=== PATIENT | female | born 1940 | race American Indian/Alaskan Native ===

== ENCOUNTER 2016-11-16 06:50 | Outpatient (CLI) | payer MEDICARE ==
--- NOTE | 2016-11-16 09:02 | Mammography Report ---
BILATERAL MAMMOGRAM: FINDINGS: The breasts are almost entirely fat (<25% glandular). No mass, distortion, suspicious calcification, or skin change is seen. No significant change identified when compared to prior exam in October 2015. CAD was utilized. IMPRESSION: Negative mammogram. There is no mammographic evidence of malignancy. RECOMMENDATION: Follow-up per ACS guidelines. BI-RADS CATEGORY: 1 = Negative ACR BI-RADS MAMMOGRAPHIC CODES: 0 = Needs additional imaging evaluation; 1 = Negative; 2 = Benign; 3 = Probably benign; 4 = Suspicious; 5 = Malignant; 6 = Known biopsy-proven malignancy COMMENT: 1. Dense breast tissue, i.e., adenosis, fibrocystic changes, etc., may obscure an underlying neoplasm. 2. Approximately 10% of cancers are not detected with mammography. 3. A negative mammography report should not delay biopsy if a clinically suspicious mass is present. COMMENT: Patient follow-up letters are generated in [employer].
== END 2016-11-16 06:51 | disposition home or self-care (01) ==
LOC: MAMMO 06:50
PROVIDERS: ATTEND Physician Assistant Medical
DX: Z12.31 Encounter for screening mammogram for malignant neoplasm of breast (principal)
CPT/HCPCS: 77067; G0202

== ENCOUNTER 2017-11-19 07:25 | Outpatient (CLI) | payer MEDICARE ==
--- NOTE | 2017-11-19 08:03 | Mammography Report ---
Bilateral mammogram: Compared to 11/16/16. CAD study utilized. Findings: Predominance adipose tissue bilaterally. Benign calcifications. Benign axillary nodes. No distinct mass. No significant interval change. Impression: Benign findings. Annual followup recommended. BI-RADS CATEGORY: 2 = Benign ACR BI-RADS MAMMOGRAPHIC CODES: 0 = Needs additional imaging evaluation; 1 = Negative; 2 = Benign; 3 = Probably benign; 4 = Suspicious; 5 = Malignant; 6 = Known biopsy-proven malignancy COMMENT: 1. Dense breast tissue, i.e., adenosis, fibrocystic changes, etc., may obscure an underlying neoplasm. 2. Approximately 10% of cancers are not detected with mammography. 3. A negative mammography report should not delay biopsy if a clinically suspicious mass is present. COMMENT: Patient follow-up letters are generated in [employer].
== END 2017-11-19 07:26 | disposition home or self-care (01) ==
LOC: MAMMO 07:25
PROVIDERS: ATTEND Physician Assistant Medical
DX: Z12.31 Encounter for screening mammogram for malignant neoplasm of breast (principal); Z88.1 Allergy status to other antibiotic agents
CPT/HCPCS: 77067

== ENCOUNTER 2018-02-14 04:09 | Emergency (ER) | payer MEDICARE ==
[2018-02-14 07:37] LABS: Hematocrit 41.5 % (30.3-42.9); Hemoglobin 14.5 gm/dl (10.1-14.3); Mean Corpuscular HGB Conc 35 % (30-34); Mean Corpuscular Hemoglobin 33 pg (28-32); Mean Corpuscular Volume 93 fl (79-97); Platelet Count 181 K/mm3 (140-440); Red Blood Count 4.45 M/mm3 (3.65-5.03); Red Cell Distribution Width 13.1 % (13.2-15.2)
[2018-02-14 07:48] LABS: BUN/Creatinine Ratio 24; Blood Urea Nitrogen 12 mg/dL (7-17); Calcium 8.9 mg/dL (8.4-10.2); Hemolysis Index 109
[2018-02-14 08:06] VITALS: BP 145/54
--- NOTE | 2018-02-14 08:11 | Emergency Department Report ---
ED General Adult HPI - General Chief complaint: High BP Stated complaint: HIGH BP/HEADACHE Time Seen by Provider: 02/14/18 08:01 Source: patient Mode of arrival: Ambulatory Limitations: No Limitations - History of Present Illness Initial comments: Patient complains of elevated blood pressure after eating barbecue sauce which itching last night. She says she took Blood pressure medicine this morning before coming to the emergency room. She denies any medical complaints currently. She denies headache, chest, shortness of breath, abdominal pain, nausea vomiting diarrhea. -: Sudden Consistency: now resolved Improves with: medication Worsens with: none Associated Symptoms: denies other symptoms Treatments Prior to Arrival: other (Losartan and metoprolol.) - Related Data Home Medications Medication Instructions Recorded Confirmed Last Taken Losartan Potassium 25 mg PO DAILY 02/14/18 02/14/18 Unknown Metoprolol Tartrate 25 mg PO BID 02/14/18 02/14/18 Unknown Allergies Allergy/AdvReac Type Severity Reaction Status Date / Time Sulfa (Sulfonamide Allergy Unknown Unverified 11/12/14 08:01 Antibiotics) ED Review of Systems ROS: Stated complaint: HIGH BP/HEADACHE Other details as noted in HPI Comment: All other systems reviewed and negative Constitutional: denies: chills, fever Eyes: denies: eye pain, eye discharge, vision change ENT: denies: ear pain, throat pain Respiratory: denies: cough, shortness of breath, wheezing Cardiovascular: denies: chest pain, palpitations Endocrine: no symptoms reported Gastrointestinal: denies: abdominal pain, nausea, diarrhea Genitourinary: denies: urgency, dysuria, discharge Musculoskeletal: denies: back pain, joint swelling, arthralgia Skin: denies: rash, lesions Neurological: denies: headache, weakness, paresthesias Psychiatric: denies: anxiety, depression Hematological/Lymphatic: denies: easy bleeding, easy bruising ED Past Medical Hx - Past Medical History Hx Hypertension: Yes - Surgical History Additional Surgical History: Hysterectomy. X1 - Social History Smoking Status: Never Smoker Substance Use Type: None - Medications Home Medications: Home Medications Medication Instructions Recorded Confirmed Last Taken Type Losartan Potassium 25 mg PO DAILY 02/14/18 02/14/18 Unknown History Metoprolol Tartrate 25 mg PO BID 02/14/18 02/14/18 Unknown History ED Physical Exam - General Limitations: No Limitations General appearance: alert, in no apparent distress - Head Head exam: Present: atraumatic, normocephalic - Eye Eye exam: Present: normal appearance, PERRL, EOMI - ENT ENT exam: Present: mucous membranes moist - Neck Neck exam: Present: normal inspection - Respiratory Respiratory exam: Present: normal lung sounds bilaterally. Absent: respiratory distress - Cardiovascular Cardiovascular Exam: Present: regular rate, normal rhythm. Absent: systolic murmur, diastolic murmur, rubs, gallop - GI/Abdominal GI/Abdominal exam: Present: soft, normal bowel sounds - Extremities Exam Extremities exam: Present: normal inspection - Back Exam Back exam: Present: normal inspection - Neurological Exam Neurological exam: Present: alert, oriented X3 - Psychiatric Psychiatric exam: Present: normal affect, normal mood - Skin Skin exam: Present: warm, dry, intact, normal color. Absent: rash ED Course Vital Signs 02/14/18 02/14/18 02/14/18 05:04 06:51 08:03 Temperature 98.6 F 98.6 F Pulse Rate 57 L 56 L 79 Respiratory 18 16 13 Rate Blood Pressure 158/68 153/59 O2 Sat by Pulse 95 97 Oximetry 02/14/18 02/14/18 08:04 08:05 Temperature Pulse Rate 61 57 L Respiratory 15 10 L Rate Blood Pressure 145/54 O2 Sat by Pulse 98 Oximetry ED Medical Decision Making - Lab Data Result diagrams: 02/14/18 08:11 02/14/18 08:11 Lab Results 02/14/18 02/14/18 Range/Units 07:21 07:21 WBC 5.1 (4.5-11.0) K/mm3 RBC 4.45 (3.65-5.03) M/mm3 Hgb 14.5 H (10.1-14.3) gm/dl Hct 41.5 (30.3-42.9) % MCV 93 (79-97) fl MCH 33 H (28-32) pg MCHC 35 H (30-34) % RDW 13.1 L (13.2-15.2) % Plt Count 181 (140-440) K/mm3 Sodium 137 (137-145) mmol/L Potassium 5.2 H (3.6-5.0) mmol/L Chloride 102.6 (98-107) mmol/L Carbon Dioxide 25 (22-30) mmol/L Anion Gap 15 mmol/L BUN 12 (7-17) mg/dL Creatinine 0.5 L (0.7-1.2) mg/dL Estimated GFR > 60 ml/min BUN/Creatinine Ratio 24 % Glucose 103 H (65-100) mg/dL Calcium 8.9 (8.4-10.2) mg/dL - Medical Decision Making Hypertension. Patient blood pressure has normalized while she was lifting in the emergency room. We'll discharge her home to follow up with her primary doctor. Patient says she has a blood pressure medication at home and she does not need any refills. Critical care attestation.: If time is entered above; I have spent that time in minutes in the direct care of this critically ill patient, excluding procedure time. ED Disposition Clinical Impression: Hypertension Qualifiers: Hypertension type: essential hypertension Qualified Code(s): I10 - Essential ( primary) hypertension Disposition: DC- TO HOME OR SELFCARE Is pt being admited?: No Does the pt Need Aspirin: No Condition: Stable Instructions: Hypertension (ED) Additional Instructions: Please follow up with her primary doctor Dr Al or Dr. Zhu within the next 24 hours. Return to the emergency room if her condition worsens. Referrals: REYES ZHU JR, MD [Staff Physician] - 3-5 Days CRUZ AL MD [Staff Physician] - 3-5 Days Time of Disposition: 08:45
[2018-02-14 08:25] LABS: Basophils % (Auto) 0.5 % (0.0-1.8); Eosinophils # (Auto) 0.1 K/mm3 (0.0-0.4); Eosinophils % (Auto) 1.2 % (0.0-4.3); Hematocrit 42.1 % (30.3-42.9); Hemoglobin 14.4 gm/dl (10.1-14.3); Lymphocytes # (Auto) 1.7 K/mm3 (1.2-5.4); Lymphocytes % (Auto) 37.1 % (13.4-35.0); Mean Corpuscular HGB Conc 34 % (30-34); Mean Corpuscular Hemoglobin 32 pg (28-32); Mean Corpuscular Volume 94 fl (79-97); Monocytes # (Auto) 0.3 K/mm3 (0.0-0.8); Monocytes % (Auto) 7.5 % (0.0-7.3); Platelet Count 175 K/mm3 (140-440)
[2018-02-14 08:40] LABS: Alanine Aminotransferase 20 units/L (7-56); BUN/Creatinine Ratio 24; Blood Urea Nitrogen 12 mg/dL (7-17); Calcium 8.9 mg/dL (8.4-10.2); Hemolysis Index 22
== END 2018-02-14 09:02 | disposition home or self-care (01) ==
LOC: ED 04:09
DX: I10 Essential (primary) hypertension (principal); Z88.2 Allergy status to sulfonamides; Z90.710 Acquired absence of both cervix and uterus
CPT/HCPCS: 36415; 80048; 80053; 85025; 85027; 99283

== ENCOUNTER 2018-09-26 22:46 | Emergency (ER) | payer MEDICARE ==
[2018-09-27 01:15] LABS: Basophils % (Auto) 0.5 % (0.0-1.8); Eosinophils # (Auto) 0.1 K/mm3 (0.0-0.4); Eosinophils % (Auto) 1.4 % (0.0-4.3); Hematocrit 39.4 % (30.3-42.9); Hemoglobin 13.5 gm/dl (10.1-14.3); Lymphocytes # (Auto) 1.8 K/mm3 (1.2-5.4); Lymphocytes % (Auto) 33.8 % (13.4-35.0); Mean Corpuscular HGB Conc 34 % (30-34); Mean Corpuscular Volume 94 fl (79-97); Monocytes # (Auto) 0.5 K/mm3 (0.0-0.8); Monocytes % (Auto) 9.6 % (0.0-7.3); Platelet Count 156 K/mm3 (140-440); Red Blood Count 4.18 M/mm3 (3.65-5.03); Red Cell Distribution Width 12.7 % (13.2-15.2)
[2018-09-27 01:33] VITALS: BP 140/76
[2018-09-27 01:37] LABS: BUN/Creatinine Ratio 19; Blood Urea Nitrogen 13 mg/dL (7-17); Calcium 9.6 mg/dL (8.4-10.2); Hemolysis Index 13
--- NOTE | 2018-09-27 02:38 | Emergency Department Report ---
ED General Adult HPI - General Chief complaint: High BP Stated complaint: BLOOD PRESSURE HIGH Time Seen by Provider: 09/27/18 02:17 Source: patient, old records reviewed Mode of arrival: Ambulatory Limitations: No Limitations - History of Present Illness Initial comments: 78-year-old female with past medical history of hypertension and diabetes presents to the hospital complaining of elevated blood pressure and headache. Patient checks her blood pressure frequency but does not know her typical value. He states it fluctuates between being too low in the morning and then getting higher at night. She is prescribed metoprolol 25 mg twice a day, hyd rochlorothiazide 12.5 mg daily, lisinopril 5 mg. Because her blood pressure was too low in the morning her doctor told her to take only half tablet i.e. 2.5 mg lisinopril daily. Patient typically takes a blood pressure medication at night only if her pressure is high. She took both the lisinopril 2.5 mg and hydrochlorothiazide 25 mg about 7:30 PM. She was concerned because her pressure was 150/91 and her diastolic pressure is not typically the high. She also had a mild left-sided headache which has since resolved. She denies nausea, vomiting, blurred vision, focal weakness, focal numbness, chest pain, or shortness of breath. Severity scale (0 -10): 0 - Related Data Home Medications Medication Instructions Recorded Confirmed Last Taken Losartan Potassium 25 mg PO DAILY 02/14/18 02/14/18 Unknown Metoprolol Tartrate 25 mg PO BID 02/14/18 02/14/18 Unknown Allergies Allergy/AdvReac Type Severity Reaction Status Date / Time Sulfa (Sulfonamide Allergy Unknown Verified 09/26/18 22:55 Antibiotics) ED Review of Systems ROS: Stated complaint: BLOOD PRESSURE HIGH Other details as noted in HPI Comment: All other systems reviewed and negative ED Past Medical Hx - Past Medical History Previous Medical History?: Yes Hx Hypertension: Yes Hx Diabetes: Yes - Surgical History Past Surgical History?: Yes Additional Surgical History: Hysterectomy. X1 - Social History Smoking Status: Never Smoker Substance Use Type: None - Medications Home Medications: Home Medications Medication Instructions Recorded Confirmed Last Taken Type Losartan Potassium 25 mg PO DAILY 02/14/18 02/14/18 Unknown History Metoprolol Tartrate 25 mg PO BID 02/14/18 02/14/18 Unknown History ED Physical Exam - General Limitations: No Limitations - Other Other exam information: General: No limitations, patient is alert in no acute distress Head exam: Atraumatic, normocephalic Eyes exam: Normal appearance, pupils equal reactive to light, extraocular movements intact ENT: Moist mucous membrane Neck exam: Normal inspection, full range of motion, no meningismus nontender Respiratory exam: Clear to auscultation bilateral, no wheezes, rales, crackles Cardiovascular: Normal rate and rhythm, normal heart sounds Abdomen: Soft, nondistended, and nontender, with normal bowel sounds, no rebound, or guarding Extremity: Full range of motion normal inspection no deformity Back: Normal Inspection, full range of motion, no tenderness Neurologic: Alert, oriented x3, cranial nerves intact, no motor or sensory deficit him a [id number] function intact Psychiatric: normal affect, normal mood Skin: Warm, dry, intact ED Course Vital Signs 09/26/18 09/27/18 09/27/18 22:50 01:26 01:32 Temperature 97.9 F Pulse Rate 64 63 62 Respiratory 18 17 16 Rate Blood Pressure 168/83 Blood Pressure 159/70 140/76 [Left] O2 Sat by Pulse 99 98 98 Oximetry ED Medical Decision Making - Lab Data Result diagrams: 09/27/18 00:59 09/27/18 01:02 Lab Results 09/26/18 09/27/18 09/27/18 Range/Units 23:04 00:59 01:02 WBC 5.3 (4.5-11.0) K/mm3 RBC 4.18 (3.65-5.03) M/mm3 Hgb 13.5 (10.1-14.3) gm/dl Hct 39.4 (30.3-42.9) % MCV 94 (79-97) fl MCH 32 (28-32) pg MCHC 34 (30-34) % RDW 12.7 L (13.2-15.2) % Plt Count 156 (140-440) K/mm3 Lymph % (Auto) 33.8 (13.4-35.0) % [place] % (Auto) 9.6 H (0.0-7.3) % Eos % (Auto) 1.4 (0.0-4.3) % Baso % (Auto) 0.5 (0.0-1.8) % Lymph # 1.8 (1.2-5.4) K/mm3 [place] # 0.5 (0.0-0.8) K/mm3 Eos # 0.1 (0.0-0.4) K/mm3 Baso # 0.0 (0.0-0.1) K/mm3 Seg Neutrophils % 54.7 (40.0-70.0) % Seg Neutrophils # 2.9 (1.8-7.7) K/mm3 Sodium 135 L (137-145) mmol/L Potassium 3.8 (3.6-5.0) mmol/L Chloride 97.0 L (98-107) mmol/L Carbon Dioxide 29 (22-30) mmol/L Anion Gap 13 mmol/L BUN 13 (7-17) mg/dL Creatinine 0.7 (0.7-1.2) mg/dL Estimated GFR > 60 ml/min BUN/Creatinine Ratio 19 % Glucose 101 H (65-100) mg/dL POC Glucose 84 (70-105) Calcium 9.6 (8.4-10.2) mg/dL - Medical Decision Making Patient is asymptomatic in the ED with improved blood pressure and nonfocal neuro exam. Labs unremarkable and no signs of hypertensive emergency at this time. Patient encouraged to continue to keep a log of her blood pressure and to discuss further management with her primary care doctor. Also informed to limit salt intake which may contribute to spikes in blood pressure. - Differential Diagnosis hypertensive emergency, hypertensive urgency, worried well Critical Care Time: No Critical care attestation.: If time is entered above; I have spent that time in minutes in the direct care of this critically ill patient, excluding procedure time. ED Disposition Clinical Impression: Uncontrolled hypertension Disposition: DC-01 TO HOME OR SELFCARE Is pt being admited?: No Does the pt Need Aspirin: No Condition: Stable Instructions: Hypertension (ED) Additional Instructions: Continue your medication as prescribed and continue to monitor your blood pressure readings. Inform your doctor of your blood pressure measurement so that your medications may be adjusted as needed. Return if symptoms worsen as indicated by your discharge instructions Referrals: your, primary care doctor [Other] - 3-5 Days Time of Disposition: 02:41
== END 2018-09-27 02:51 | disposition home or self-care (01) ==
LOC: ED 22:46
DX: I10 Essential (primary) hypertension (principal); E11.9 Type 2 diabetes mellitus without complications; Z90.710 Acquired absence of both cervix and uterus; Z88.2 Allergy status to sulfonamides
CPT/HCPCS: 36415; 80048; 82962; 85025; 99283

== ENCOUNTER 2018-11-21 07:16 | Outpatient (CLI) | payer MEDICARE ==
--- NOTE | 2018-11-21 10:57 | Mammography Report ---
BILATERAL DIGITAL SCREENING MAMMOGRAM WITH CAD INDICATION: Routine screening mammography. TECHNIQUE: Digital bilateral 2D mammography was obtained in the craniocaudal and mediolateral obliq ue projections. This examination was interpreted with the benefit of Computer-Aided Detection analysi s. COMPARISON: 11/19/2017 FINDINGS: Breast Density: The breasts are almost entirely fatty. No mass, architectural distortion or suspicious calcifications. IMPRESSION:No mammographic evidence of malignancy. BI-RADS Category 1: Negative. No mammographic evidence of malignancy. Recommend routine screening m ammography in one year. A "normal" or negative report should not discourage follow up or biopsy of a clinically significant f inding. A written summary of these findings will be mailed to the patient. The patient will be entered into a mammography reporting system which will generate a reminder letter for the patient's next appointmen t at the appropriate interval. The [employer] recommends yearly mammograms starting at age 40 and continuing as l dixie as a woman is in good health. Breast MRI is recommended for women with an approximate 20-25% or greater lifetime risk of breast cancer, including women with a strong family history of breast or ova agnes cancer or who have been treated for Hodgkin's disease. Signer Name: Kody Wilson MD Signed: 11/21/2018 10:52 AM Workstation Name: [id number]
== END 2018-11-21 07:17 | disposition home or self-care (01) ==
LOC: MAMMO 07:16
PROVIDERS: ATTEND Internal Medicine
DX: Z12.31 Encounter for screening mammogram for malignant neoplasm of breast (principal); I10 Essential (primary) hypertension; Z90.710 Acquired absence of both cervix and uterus
CPT/HCPCS: 77067

== ENCOUNTER 2019-11-23 08:21 | Outpatient (CLI) | payer MEDICARE ==
--- NOTE | 2019-11-23 09:28 | Mammography Report ---
DIGITAL SCREENING MAMMOGRAM WITH CAD, 11/23/2019 INDICATION: Routine screening mammography. ROUTINE TECHNIQUE: Digital bilateral 2D mammography was obtained in the craniocaudal and mediolateral obliq ue projections. This examination was interpreted with the benefit of Computer-Aided Detection analysi s. COMPARISON: 11/21/2018 FINDINGS: Breast Density: There are scattered areas of fibroglandular density. There is no evidence of dominant mass, suspicious calcifications or architectural distortion in eithe r breast. IMPRESSION: Follow up recommendation: Routine yearly BI-RADS Category 1: Negative. A "normal" or negative report should not discourage follow up or biopsy of a clinically significant f inding. A written summary of these findings will be mailed to the patient. The patient will be entered into a mammography reporting system which will generate a reminder letter for the patient's next appointmen t at the appropriate interval. The [employer] recommends yearly mammograms starting at age 40 and continuing as l dixie as a woman is in good health. Breast MRI is recommended for women with an approximate 20-25% or greater lifetime risk of breast cancer, including women with a strong family history of breast or ova agnes cancer or who have been treated for Hodgkin's disease. Signer Name: Alexander Fry MD Signed: 11/23/2019 9:24 AM Workstation Name: [id number]
== END 2019-11-23 08:22 | disposition home or self-care (01) ==
LOC: MAMMO 08:21
PROVIDERS: ATTEND Internal Medicine
DX: Z12.31 Encounter for screening mammogram for malignant neoplasm of breast (principal)
CPT/HCPCS: 77067

== ENCOUNTER 2020-11-25 07:29 | Outpatient (CLI) | payer MEDICARE ==
--- NOTE | 2020-11-25 09:33 | Mammography Report ---
DIGITAL SCREENING MAMMOGRAM WITH CAD, 11/25/2020 INDICATION: Routine screening mammography. TECHNIQUE: Digital bilateral 2D mammography was obtained in the craniocaudal and mediolateral obliq ue projections. This examination was interpreted with the benefit of Computer-Aided Detection analysi s. COMPARISON: 11/23/2019 FINDINGS: Breast Density: The breasts are almost entirely fatty. There is no evidence of dominant mass, suspicious calcifications or architectural distortion in eithe r breast. IMPRESSION: Follow up recommendation: Routine yearly BI-RADS Category 1: Negative. A "normal" or negative report should not discourage follow up or biopsy of a clinically significant f inding. A written summary of these findings will be mailed to the patient. The patient will be entered into a mammography reporting system which will generate a reminder letter for the patient's next appointmen t at the appropriate interval. The [employer] recommends yearly mammograms starting at age 40 and continuing as l dixie as a woman is in good health. Breast MRI is recommended for women with an approximate 20-25% or greater lifetime risk of breast cancer, including women with a strong family history of breast or ova agnes cancer or who have been treated for Hodgkin's disease. Signer Name: Vivek Roberts MD Signed: 11/25/2020 9:29 AM Workstation Name: [id number]
== END 2020-11-25 07:30 | disposition home or self-care (01) ==
LOC: MAMMO 07:29
PROVIDERS: ATTEND Physician Assistant Medical
DX: Z12.31 Encounter for screening mammogram for malignant neoplasm of breast (principal); N64.89 Other specified disorders of breast
CPT/HCPCS: 77067

== ENCOUNTER 2021-09-21 22:02 | Observation (INO) | payer MEDICARE ==
[2021-09-22 05:11] LABS: Basophils % (Auto) 0.8 % (0.0-1.8); Eosinophils # (Auto) 0.1 K/mm3 (0.0-0.4); Eosinophils % (Auto) 1.1 % (0.0-4.3); Hematocrit 43.1 % (30.3-42.9); Hemoglobin 14.5 gm/dl (10.1-14.3); Mean Corpuscular HGB Conc 34 % (30-34); Mean Corpuscular Volume 95 fl (79-97); Monocytes # (Auto) 0.4 K/mm3 (0.0-0.8); Monocytes % (Auto) 8.1 % (0.0-7.3); Platelet Count 169 K/mm3 (140-440); Red Blood Count 4.54 M/mm3 (3.65-5.03); Red Cell Distribution Width 13.3 % (13.2-15.2)
[2021-09-22 05:16] LABS: INR 1.09 (0.87-1.13)
[2021-09-22 05:25] LABS: Alanine Aminotransferase 18 units/L (7-56); Albumin 4.3 g/dL (3.9-5); Blood Urea Nitrogen 13 mg/dL (7-17); Calcium 9.3 mg/dL (8.4-10.2); Hemolysis Index 9
[2021-09-22 05:30] LABS: BUN/Creatinine Ratio 22
--- NOTE | 2021-09-22 06:17 | Emergency Department Report ---
ED General Adult HPI - General Chief complaint: Syncope Stated complaint: near syncope Time Seen by Provider: 09/22/21 06:03 Source: patient, RN notes reviewed, old records reviewed Mode of arrival: Ambulatory Limitations: No Limitations - History of Present Illness Initial comments: The patient was evaluated in the emergency department for symptoms described in the history of present illness. He/she was evaluated in the context of the global COVID-19 pandemic, which necessitated consideration that the patient might be at risk for infection with the virus that causes COVID-19. Institutional protocols and algorithms that pertain to the evaluation of patients at risk for COVID-19 are in a state of rapid change based on information released by regulatory bodies including the CDC and federal and state organizations. These policies and algorithms were followed during the patient's care in the emergency department. Please note that these policies, procedures and recommendations changed on a rapid basis. The patient is an 81-year-old female, with a history of hypertension and high cholesterol, who recently started eliquis for "fast rhythm and the top portion of my heart." The patient presents to the ER today with a complaint of almost passing out 3 times yesterday. She denies physical pain. The patient denies extremity weakness and numbness. Patient denies bright red blood per rectum, hematemesis, black stool, and dysuria. The patient denies travel, surgery, immobilization, leg pain or leg swelling, DVT/PE risk factors, and she reports compliance with her Eliquis. Besides recently starting Eliquis, she denies new medications. -: Sudden Consistency: intermittent Improves with: none Worsens with: none Associated Symptoms: denies other symptoms - Related Data Home Medications Medication Instructions Recorded Confirmed Last Taken Losartan Potassium 25 mg PO DAILY 02/14/18 02/14/18 Unknown Metoprolol Tartrate 25 mg PO BID 02/14/18 02/14/18 Unknown Allergies Allergy/AdvReac Type Severity Reaction Status Date / Time Sulfa (Sulfonamide Allergy Unknown Verified 09/26/18 22:55 Antibiotics) ED Review of Systems ROS: Stated complaint: TINGLING IN LEGS AFTER TAKEN ELIQUIS Other details as noted in HPI Comment: All other systems reviewed and negative Cardiovascular: other (Lightheadedness and near syncope x3). denies: chest pain ED Past Medical Hx - Past Medical History Hx Hypertension: Yes Hx Diabetes: Yes - Surgical History Additional Surgical History: Hysterectomy. X1 - Social History Smoking Status: Never Smoker Substance Use Type: None - Medications Home Medications: Home Medications Medication Instructions Recorded Confirmed Last Taken Type Losartan Potassium 25 mg PO DAILY 02/14/18 02/14/18 Unknown History Metoprolol Tartrate 25 mg PO BID 02/14/18 02/14/18 Unknown History ED Physical Exam - General Limitations: No Limitations General appearance: alert, in no apparent distress - Head Head exam: Present: atraumatic, normocephalic - Eye Eye exam: Present: normal appearance, EOMI, other (Bilateral arcus senilis). Absent: nystagmus - ENT ENT exam: Present: normal exam, normal orophraynx, mucous membranes moist, normal external ear exam - Neck Neck exam: Present: normal inspection, full ROM. Absent: tenderness, meningismus - Respiratory Respiratory exam: Present: normal lung sounds bilaterally. Absent: respiratory distress, wheezes, rales, rhonchi, stridor, decreased breath sounds - Cardiovascular Cardiovascular Exam: Present: regular rate, irregular rhythm, normal heart sounds. Absent: bradycardia, tachycardia, systolic murmur, diastolic murmur, rubs, gallop - GI/Abdominal GI/Abdominal exam: Present: soft. Absent: distended, tenderness, guarding, rebound, rigid, pulsatile mass - Extremities Exam Extremities exam: Present: normal inspection, full ROM, other (2+ pulses noted in the bilateral upper and lower extremities. There is no palpable cord. negative Homans sign. Muscular compartments are soft. The pelvis is stable.). Absent: pedal edema, calf tenderness - Back Exam Back exam: Present: normal inspection. Absent: tenderness, CVA tenderness (R), CVA tenderness (L), paraspinal tenderness, vertebral tenderness - Neurological Exam Neurological exam: Present: alert, oriented X3, reflexes normal, other (No facial droop. Tongue midline. Extraocular movements intact bilaterally. Facial sensation intact to light touch in V1, V2, V3 distribution bilaterally. 5 and a 5 strength in 4 extremities. Sensation intact to light touch in 4 extremities.). Absent: motor sensory deficit - Psychiatric Psychiatric exam: Present: normal affect, normal mood - Skin Skin exam: Present: warm, dry, intact, normal color. Absent: rash ED Course Vital Signs 09/21/21 09/22/21 22:05 06:39 Temperature 97.8 F Pulse Rate 65 Respiratory 19 Rate Blood Pressure 154/76 O2 Sat by Pulse 98 Oximetry O2 Sat by Pulse 99 Oximetry [ Digit-Finger] - Reevaluation(s) Reevaluation #1: 09/22/21 06:33 Differential diagnosis, including but not limited to: Orthostasis, vagal event, electrolyte derangement, thyroid derangement, structural cardiac disease, intracranial bleeding Assessment and plan: 81-year-old female, who is not currently tachycardic, ta chypneic or hypoxic, who denies DVT and pulmonary embolism risk factors, who is low risk by Wells criteria for pulmonary embolism, who is compliant with Eliquis, presenting with near syncope x3. Her physical examination is benign, and noncontributory, with the exception of an irregularly irregular heart rhythm. Laboratory studies were ordered prior to my personal evaluation of this patient, including a D-dimer. I would not have ordered a D-dimer on this patient. When age-adjusted D-dimer is considered, D-dimer less than or equal to cutoff, therefore, pulmonary embolism is very unlikely. Patient moderate risk for adverse event as per [place] syncope risk score. I doubt intracranial hemorrhage, but given advanced age and nonspecific symptoms, obtain noncontrast CT scan of the brain to rule out intracranial hemorrhage. Medication list reviewed, she has been on metoprolol and a statin for quite some time. She denies bright red blood per rectum, her laboratory studies are not sugge stive of GI bleed or bleeding in General. Anticipate admission for evaluation of near syncope once initial diagnostics have resulted. 410 g/L Age-adjusted D-dimer cutoff, DDU VTE unlikely Reported D-dimer is less than or equal to cutoff; consider alternative diagnosis 1 points [place] Syncope Risk Score Medium risk 3.1% risk of 30-day serious adverse event (, arrhythmia, [place] full list in Evidence) 09/22/21 06:37 Reevaluation #2: 09/22/21 07:52 CT scan of the brain negative for acute findings. Went back to evaluate the patient. On the traffic monitor specialist, I appreciated runs of narrow complex irregular looking tachycardia, heart rate 140 bpm. Suspect A. fib with RVR, paroxysmal. Heart rate currently in the 80s. Blood pressure is acceptable. Continue low-dose metoprolol. Continue Eliquis. Patient is agreeable to admission and hospitalization. Have requested that nursing team attempt to obtain rhythm strip from traffic monitor specialist. Hospital physician, Dr. Carballo, to admit patient to the medical service. - Pulse Oximetry Interpretation Digit-Finger Initial Pulse Oximetry Readin O2 Sat by Pulse Oximetry: 99 Actions Taken: none ED Medical Decision Making - Lab Data Result diagrams: 09/22/21 04:30 09/22/21 04:30 Vital Signs 09/21/21 22:05 Temperature 97.8 F Pulse Rate 65 Respiratory 19 Rate Blood Pressure 154/76 O2 Sat by Pulse 98 Oximetry Lab Results 09/22/21 09/22/21 09/22/21 Range/Units 04:30 04:30 04:30 WBC 5.3 (4.5-11.0) K/mm3 RBC 4.54 (3.65-5.03) M/mm3 Hgb 14.5 H (10.1-14.3) gm/dl Hct 43.1 H (30.3-42.9) % MCV 95 (79-97) fl MCH 32 (28-32) pg MCHC 34 (30-34) % RDW 13.3 (13.2-15.2) % Plt Count 169 (140-440) K/mm3 Lymph % (Auto) 38.0 H (13.4-35.0) % [place] % (Auto) 8.1 H (0.0-7.3) % Eos % (Auto) 1.1 (0.0-4.3) % Baso % (Auto) 0.8 (0.0-1.8) % Lymph # (Auto) 2.0 (1.2-5.4) K/mm3 [place] # (Auto) 0.4 (0.0-0.8) K/mm3 Eos # (Auto) 0.1 (0.0-0.4) K/mm3 Baso # (Auto) 0.0 (0.0-0.1) K/mm3 Seg Neutrophils % 52.0 (40.0-70.0) % Seg Neutrophils # 2.8 (1.8-7.7) K/mm3 PT 15.4 H (12.2-14.9) Sec. INR 1.09 (0.87-1.13) APTT 39.0 H (24.2-36.6) Sec. D-Dimer 314.88 H (0-234) ng/mlDDU Sodium 141 (137-145) mmol/L Potassium 4.2 (3.6-5.0) mmol/L Chloride 104.6 (98-107) mmol/L Carbon Dioxide 25 (22-30) mmol/L Anion Gap 16 mmol/L BUN 13 (7-17) mg/dL Creatinine 0.6 (0.6-1.2) mg/dL Estimated GFR > 60 ml/min BUN/Creatinine Ratio 22 % Glucose 86 (65-100) mg/dL Calcium 9.3 (8.4-10.2) mg/dL Total Bilirubin 1.10 (0.1-1.2) mg/dL AST 24 (5-40) units/L ALT 18 (7-56) units/L Alkaline Phosphatase 50 (35-129) units/L Total Protein 7.6 (6.3-8.2) g/dL Albumin 4.3 (3.9-5) g/dL Albumin/Globulin Ratio 1.3 % - EKG Data -: EKG Interpreted by Id - EKG Data 09/22/21 06:36 The EKG is interpreted by myself at 06: 23 Sinus rhythm, rate 71 bpm. Normal axis. QTC 4 5 9 ms. Poor R wave progression. Low voltage. PVC, PAC. Abnormal EKG. Not a STEMI. No prior for comparison. - Radiology Data Radiology results: pending CT HEAD WITHOUT CONTRAST INDICATION / CLINICAL INFORMATION: near syncope on eliquis. TECHNIQUE: CT head was performed without administration of intravenous contrast. All CT scans at this location are performed using CT dose reduction for ALARA by means of automated exposure control. COMPARISON: None available. FINDINGS: CEREBRAL HEMISPHERES: Generalized atrophy and bilateral regions of periventricular white matter hypoattenuation compatible with microvascular ischemia are demonstrated. No midline shift. Basal cisterns patent. HEMORRHAGE: None. CEREBELLUM / BRAINSTEM: No significant abnormality. ORBITS: No significant abnormality. SOFT TISSUES: No significant abnormality. SKULL: No significant abnormality. PARANASAL SINUSES / MASTOID AIR CELLS: Normal as visualized. ADDITIONAL FINDINGS: None. IMPRESSION: 1. No acute intracranial abnormality. Signer Name: Israel Rodriguez II, MD Signed: 09/22/2021 6:35 AM Workstation Name: [id number] Critical care attestation.: If time is entered above; I have spent that time in minutes in the direct care of this critically ill patient, excluding procedure time. ED Disposition Clinical Impression: Near syncope, Anticoagulated Disposition: 09 ADMITTED INPATIENT Is pt being admited?: Yes Does the pt Need Aspirin: No Condition: Good
--- NOTE | 2021-09-22 07:39 | Cat Scan Report ---
CT HEAD WITHOUT CONTRAST INDICATION / CLINICAL INFORMATION: near syncope on eliquis. TECHNIQUE: CT head was performed without administration of intravenous contrast. All CT scans at this location are performed using CT dose reduction for ALARA by means of automated exposure control. COMPARISON: None available. FINDINGS: CEREBRAL HEMISPHERES: Generalized atrophy and bilateral regions of periventricular white matter hypoa ttenuation compatible with microvascular ischemia are demonstrated. No midline shift. Basal cisterns patent. HEMORRHAGE: None. CEREBELLUM / BRAINSTEM: No significant abnormality. ORBITS: No significant abnormality. SOFT TISSUES: No significant abnormality. SKULL: No significant abnormality. PARANASAL SINUSES / MASTOID AIR CELLS: Normal as visualized. ADDITIONAL FINDINGS: None. IMPRESSION: 1. No acute intracranial abnormality. Signer Name: Israel Rodriguez II, MD Signed: 09/22/2021 7:35 AM Workstation Name: [id number]
[2021-09-22] MEDS ORDERED: METOPROLOL TARTRATE 25 MG TAB PO STA (07:48)
[2021-09-22] MEDS ORDERED: APIXABAN 5 MG TAB PO STA (07:51)
[2021-09-22] MEDS ORDERED: NALOXONE 0.4 MG/1 ML INJ IV PRN (08:11)
[2021-09-22] MEDS ORDERED: CETIRIZINE 10 MG TAB PO NR (08:15)
--- NOTE | 2021-09-22 08:20 | History and Physical Report ---
History of Present Illness Date of examination: 09/22/21 Date of admission: 09/22/21 Chief complaint: I felt faint History of present illness: Patient is an 81-year-old female with history of hypertension, hyperlipidemia, possible paroxysmal atrial fibrillation recently started on Eliquis according to her for fast rhythm who presents to the ER with complaints of near fainting episode that happened 3 times yesterday and also this morning. She states that when she woke up she felt near faint she felt that her heart was skipping a beat. She said that she got up walk to the kitchen and was able to drink water and get back and she felt better. But she was concerned about how many times this is happened prompting her to come to the ER. She denies any nausea vo miting diarrhea fever dysuria. She denies any recent travel. She is compliant with all her medication including her Eliquis. She is followed by [facility] cardiology. Initial work-up in the ER does not show any abnormality including a CT of the head which was negative. There is only a mildly elevated D-dimer which went for age calculation appears within normal range. Past History Past Medical History: hypertension, hyperlipidemia, other (Paroxysmal atrial fibrillation possible) Past Surgical History: (X1), Other (Age-appropriate colonoscopy) Social history: full code. denies: smoking, alcohol abuse, IV drug use Family history: no significant family history Medications and Allergies Allergies Allergy/AdvReac Type Severity Reaction Status Date / Time Sulfa (Sulfonamide Allergy Unknown Verified 09/26/18 22:55 Antibiotics) Home Medications Medication Instructions Recorded Confirmed Last Taken Type Losartan Potassium 25 mg PO DAILY 02/14/18 02/14/18 Unknown History Metoprolol Tartrate 25 mg PO BID 02/14/18 02/14/18 Unknown History Review of Systems Constitutional: fatigue, weakness, no weight loss, no weight gain, no fever, no chills, no sweats, no night sweats, no anorexia, no malaise, no lethargy, no poor appetite, no daytime sleepiness, no chronic pain Cardiovascular: palpitations, rapid/irregular heart beat, lightheadedness, no chest pain, no orthopnea, no edema, no syncope, no shortness of breath Respiratory: no cough, no cough with sputum, no excessive sputum, no hemoptysis, no shortness of breath, no dyspnea on exertion, no congestion Exam - Physical Exam Narrative exam: VITAL SIGNS: Reviewed. GENERAL: The patient appears normally developed, Vital signs as documented. HEAD: No signs of head trauma. EYES: Pupils are equal. Extraocular motions intact. EARS: Hearing grossly intact. MOUTH: Oropharynx is normal. NECK: No adenopathy, no JVD. CHEST: Chest with clear breath sounds bilaterally. No wheezes, rales, or rhonchi. CARDIAC: Regular irregularly irregular. S1 and S2, without murmurs, gallops, or rubs. VASCULAR: No Edema. Peripheral pulses normal and equal in all extremities. ABDOMEN: Soft, non tender and non distended. No rebound or guarding, and no masses palpated. Bowel Sounds normal. MUSCULOSKELETAL: Good range of motion of all major joints. Extremities without clubbing, cyanosis or edema. NEUROLOGIC EXAM: Alert and oriented x 3 No focal sensory or strength deficits. Speech normal. Follows commands. PSYCHIATRIC: Mood normal. SKIN: detail exam as documented in skin assessment - Constitutional Vitals: Temp Pulse Resp BP Pulse Ox 97.8 F 65 19 154/76 99 09/21/21 22:05 09/21/21 22:05 09/21/21 22:05 09/21/21 22:05 09/22/21 07:54 HEART Score - HEART Score Troponin: Troponin T < 0.010 ng/mL (0.00-0.029) 09/22/21 06:46 Results - Labs CBC & Chem 7: 09/22/21 08:27 09/22/21 04:30 Labs: Laboratory Last Values WBC 5.3 K/mm3 (4.5-11.0) 09/22/21 04:30 RBC 4.54 M/mm3 (3.65-5.03) 09/22/21 04:30 Hgb 14.5 gm/dl (10.1-14.3) H 09/22/21 04:30 Hct 43.1 % (30.3-42.9) H 09/22/21 04:30 MCV 95 fl (79-97) 09/22/21 04:30 MCH 32 pg (28-32) 09/22/21 04:30 MCHC 34 % (30-34) 09/22/21 04:30 RDW 13.3 % (13.2-15.2) 09/22/21 04:30 Plt Count 169 K/mm3 (140-440) 09/22/21 04:30 Lymph % (Auto) 38.0 % (13.4-35.0) H 09/22/21 04:30 [place] % (Auto) 8.1 % (0.0-7.3) H 09/22/21 04:30 Eos % (Auto) 1.1 % (0.0-4.3) 09/22/21 04:30 Baso % (Auto) 0.8 % (0.0-1.8) 09/22/21 04:30 Lymph # (Auto) 2.0 K/mm3 (1.2-5.4) 09/22/21 04:30 [place] # (Auto) 0.4 K/mm3 (0.0-0.8) 09/22/21 04:30 Eos # (Auto) 0.1 K/mm3 (0.0-0.4) 09/22/21 04:30 Baso # (Auto) 0.0 K/mm3 (0.0-0.1) 09/22/21 04:30 Seg Neutrophils % 52.0 % (40.0-70.0) 09/22/21 04:30 Seg Neutrophils # 2.8 K/mm3 (1.8-7.7) 09/22/21 04:30 PT 15.4 Sec. (12.2-14.9) H 09/22/21 04:30 INR 1.09 (0.87-1.13) 09/22/21 04:30 APTT 39.0 Sec. (24.2-36.6) H 09/22/21 04:30 D-Dimer 314.88 ng/mlDDU (0-234) H 09/22/21 04:30 Sodium 141 mmol/L (137-145) 09/22/21 04:30 Potassium 4.2 mmol/L (3.6-5.0) 09/22/21 04:30 Chloride 104.6 mmol/L (98-107) 09/22/21 04:30 Carbon Dioxide 25 mmol/L (22-30) 09/22/21 04:30 Anion Gap 16 mmol/L 09/22/21 04:30 BUN 13 mg/dL (7-17) 09/22/21 04:30 Creatinine 0.6 mg/dL (0.6-1.2) 09/22/21 04:30 Estimated GFR > 60 ml/min 09/22/21 04:30 BUN/Creatinine Ratio 22 % 09/22/21 04:30 Glucose 86 mg/dL (65-100) 09/22/21 04:30 Calcium 9.3 mg/dL (8.4-10.2) 09/22/21 04:30 Magnesium 2.30 mg/dL (1.7-2.3) 09/22/21 05:00 Total Bilirubin 1.10 mg/dL (0.1-1.2) 09/22/21 04:30 AST 24 units/L (5-40) 09/22/21 04:30 ALT 18 units/L (7-56) 09/22/21 04:30 Alkaline Phosphatase 50 units/L (35-129) 09/22/21 04:30 Troponin T < 0.010 ng/mL (0.00-0.029) 09/22/21 06:46 Total Protein 7.6 g/dL (6.3-8.2) 09/22/21 04:30 Albumin 4.3 g/dL (3.9-5) 09/22/21 04:30 Albumin/Globulin Ratio 1.3 % 09/22/21 04:30 TSH 1.870 mlU/mL (0.270-4.200) 09/22/21 05:00 Assessment and Plan Assessment and plan: Patient is an 81-year-old female with history of hypertension, hyperlipidemia, possible paroxysmal atrial fibrillation recently started on Eliquis according to her for fast rhythm who presents to the ER with complaints of near fainting episode that happened 3 times yesterday and also this morning. She states that when she woke up she felt near faint she felt that her heart was skipping a beat. She said that she got up walk to the kitchen and was able to drink water and get back and she felt better. But she was concerned about how many times this is happened prompting her to come to the ER. She denies any nausea vomiting diarrhea fever dysuria. She denies any recent travel. She is compliant with all her medication including her Eliquis. She is followed by [facility] cardiology. Initial work-up in the ER does not show any abnormality including a CT of the head which was negative. There is only a mildly elevated D-dimer which went for age calculation appears within normal range. Paroxysmal A. fib with possible symptomatic. Near syncope likely secondary to paroxysmal atrial fibrillation Hypertension Hyperlipidemia Secondary coagulopathy Neuropathy patient on gabapentin outpatient Plan Admit to telemetry Resume appropriate home medication including beta-margarito and Eliquis Cardiology consultation, echocardiogram if not recently done at [place] [facility] Bilateral lower extremity Doppler CTA rule out pulmonary embolism although patient for age adjusted D-dimer is around the count of. GI prophylaxis Check orthostatic vitals Plan of care discussed with the patient in detail advance care directive discussed with the patient in detail for 30 minutes patient desires to be a full code. Anticipate discharge in a.m. if clinically stable and no new findings. Advance Directives: Yes Plan of care discussed with patient/family: Yes
[2021-09-22] MEDS ORDERED: ALBUTEROL 2.5 MG/3 ML NEBU IH PRN (08:30)
[2021-09-22 08:41] LABS: Hemoglobin 14.8 gm/dl (10.1-14.3); Mean Corpuscular HGB Conc 35 % (30-34); Mean Corpuscular Volume 95 fl (79-97); Platelet Count 166 K/mm3 (140-440); Red Blood Count 4.54 M/mm3 (3.65-5.03); Red Cell Distribution Width 13.1 % (13.2-15.2)
[2021-09-22] MEDS ORDERED: ONDANSETRON 4 MG/2 ML INJ IV PRN (09:00)
[2021-09-22] MEDS ORDERED: MORPHINE 2 MG/1 ML INJ IV PRN (09:00)
[2021-09-22] MEDS ORDERED: PRAVASTATIN 80 MG TAB PO ONE (09:00)
[2021-09-22] MEDS ORDERED: ACETAMINOPHEN 325 MG TAB PO PRN (09:00)
[2021-09-22 09:08] LABS: INR 1.16 (0.87-1.13)
[2021-09-22 09:09] LABS: Partial Thromboplastin Time 21.5 Sec. (24.2-36.6)
[2021-09-22] MEDS ORDERED: FLUTICASONE PROPIONATE NASAL SPRAY 16 GM NS PRN (10:00)
--- NOTE | 2021-09-22 10:20 | Cat Scan Report ---
CT angio chest INDICATION / CLINICAL INFORMATION: near syncope. TECHNIQUE: Axial CT images were obtained through the chest after injection of IV contrast. 3 plane NM P and/or 3D reconstructions were produced. All CT scans at this location are performed using CT dose reduction for ALARA by means of automated exposure control. COMPARISON: None available. FINDINGS: PULMONARY ARTERIES: No central or segmental pulmonary embolus. THORACIC AORTA: Mild atherosclerotic calcification without acute abnormality. HEART: There is cardiac enlargement with nonspecific reflux of contrast into the hepatic veins. No pe ricardial effusion. CORONARY ARTERY CALCIFICATION: Mild coronary artery calcifications. LYMPHADENOPATHY: No significant thoracic lymphadenopathy. LUNGS/PLEURA: No acute interstitial or airspace disease. No significant interlobular septal thickenin g. No pleural effusion or pneumothorax. OTHER FINDINGS: Elevation of the left hemidiaphragm. UPPER ABDOMEN: No acute findings. SKELETAL SYSTEM: DISH LIKE changes throughout the thoracic spine. No acute osseous findings. IMPRESSION: 1. No acute findings in the chest. No evidence of pulmonary embolism. 2. Cardiomegaly without overt failure. Signer Name: Melecio Rodrigez MD Signed: 09/22/2021 10:16 AM Workstation Name: [id number]
[2021-09-22] MEDS: FAMOTIDINE 20 MG TAB PO SCH ×2 (12:13→23:38)
[2021-09-22] MEDS: ACYCLOVIR 200 MG CAP PO SCH ×2 (12:14→23:39)
[2021-09-22] MEDS: GABAPENTIN 100 MG CAP PO SCH ×2 (17:55→23:38)
--- NOTE | 2021-09-22 20:16 | Electrocardiograph Report ---
[facility] Test Date: 2021-09-22 Test Time: 06:23:36 Pat Name: MIRTHA IRENE Department: Room: A465 Gender: F Oncologist: HITESH : 1940 Requested By: MI GAN Order Number: [id number] Reading MD: Parvez Bailey Measurements Intervals [place]man Rate: 71 P: 45 OK: 159 QRS: 8 QRSD: 94 T: 16 QT: 423 QTc: 459 Interpretive Statements Sinus rhythm Multiple premature complexes, vent & supraven Low voltage, precordial leads Probable anteroseptal infarct, old No previous ECG available for comparison Electronically Signed On 09-22-2021 20:16:14 EDT by Parvez Bailey
[2021-09-22] MEDS: BUDESONIDE 0.5 MG/2 ML NEBU IH SCH (21:03)
[2021-09-22] MEDS ORDERED: LATANOPROST 0.005% OPHTH SOLN 2.5 ML OU SCH (23:17)
[2021-09-22] MEDS: APIXABAN 5 MG TAB PO SCH (23:38)
[2021-09-22] MEDS: METOPROLOL TARTRATE 25 MG TAB PO SCH (23:38)
[2021-09-23 04:52] LABS: Basophils % (Auto) 0.6 % (0.0-1.8); Eosinophils # (Auto) 0.1 K/mm3 (0.0-0.4); Eosinophils % (Auto) 1.7 % (0.0-4.3); Hematocrit 42.7 % (30.3-42.9); Hemoglobin 14.2 gm/dl (10.1-14.3); Lymphocytes # (Auto) 1.9 K/mm3 (1.2-5.4); Lymphocytes % (Auto) 40.8 % (13.4-35.0); Mean Corpuscular HGB Conc 33 % (30-34); Mean Corpuscular Volume 95 fl (79-97); Monocytes # (Auto) 0.4 K/mm3 (0.0-0.8); Monocytes % (Auto) 9.6 % (0.0-7.3); Platelet Count 165 K/mm3 (140-440); Red Cell Distribution Width 13.1 % (13.2-15.2)
[2021-09-23 05:15] LABS: Blood Urea Nitrogen 16 mg/dL (7-17); Calcium 8.8 mg/dL (8.4-10.2); Hemolysis Index 5
[2021-09-23 05:25] LABS: BUN/Creatinine Ratio 23
[2021-09-23] MEDS: GABAPENTIN 100 MG CAP PO SCH (07:23)
[2021-09-23] MEDS ORDERED: INSULIN LISPRO 100 UNIT/ML SUB-Q SCH (07:30)
[2021-09-23] MEDS: BUDESONIDE 0.5 MG/2 ML NEBU IH SCH (09:43)
[2021-09-23] MEDS: ACYCLOVIR 200 MG CAP PO SCH (09:58)
[2021-09-23] MEDS: FAMOTIDINE 20 MG TAB PO SCH (09:58)
[2021-09-23] MEDS: METOPROLOL TARTRATE 25 MG TAB PO SCH (09:58)
[2021-09-23] MEDS: APIXABAN 5 MG TAB PO SCH (09:58)
--- NOTE | 2021-09-23 10:47 | Consultation ---
History of Present Illness Consult date: 09/23/21 Requesting physician: CHARLOTTE LEIVA Consult reason: other (near syncope) History of present illness: This is a pleasant 81-year-old -Chinese female, with past medical history of paroxysmal A. fib (status post ablation), hyperlipidemia, hypertension, mitral valve regurgitation, obesity, who presented to [facility] 09/22/2021 with complaints of 3 pre-syncopal episodes, she is now admitted. She states that she was sitting on her couch earlier in the evening, when she suddenly felt faint. She states that she got up to get a glass of water and sat for about 25 minutes, when the dizziness occurred again. She, again, tried to drink water and lay down, however but she did not get relief of her symptoms which prompted her arrival to the emergency department. She denies chest pain, shortness of breath, palpitations, syncope, blacking out. She denies nausea, vomiting, recent illness. No prolonged travel. She is a non-smoker. Reports compliance with medications. Work-up in the emergency department revealed a CT chest with no acute findings, no evidence of pulmonary embolism. Cardiomegaly without overt failure. CT head with no acute intracranial abnormality. Cardiology is consulted for near syncope. Past History Past Medical History: hypertension, hyperlipidemia, other (Paroxysmal atrial fibrillation possible) Past Surgical History: (X1), Other (Age-appropriate colonoscopy) Social history: full code. denies: smoking, alcohol abuse, IV drug use Family history: no significant family history Medications and Allergies Allergies Allergy/AdvReac Type Severity Reaction Status Date / Time Sulfa (Sulfonamide Allergy Unknown Verified 09/22/21 10:31 Antibiotics) Home Medications Medication Instructions Recorded Confirmed Last Taken Type Metoprolol Tartrate 25 mg PO BID 02/14/18 02/14/18 09/21/21 22:00 History 25 mg Acyclovir [Zovirax Tab] 400 mg PO BID 09/22/21 09/22/21 09/22/21 21:37 History 400 mg Cetirizine HCl [Cetirizine 5mg tab] 10 mg PO DAILY 09/22/21 09/22/21 09/21/21 22:00 History Eliquis 5 mg PO BID 09/22/21 09/22/21 1 Day Ago History ~09/21/21 5 mg Gabapentin 100 mg PO BID 09/22/21 09/22/21 09/22/21 10:00 History 100 mg Latanoprost 0.005% 1 drop UD QHS 09/22/21 09/22/21 09/21/21 22:00 History 1 drop Metoprolol 25 mg PO BID 09/22/21 09/22/21 09/22/21 10:00 History 25 mg Mometasone Furoat/Ammonium Lac 09/22/21 09/22/21 10:00 History 25 mg Simvastatin 40 mg PO QHS 09/22/21 09/22/21 09/21/21 22:00 History 40 mg lisinopriL 25 mg PO BID 09/22/21 09/22/21 09/22/21 10:00 History 25 mg Active Meds: Active Medications Acetaminophen (Acetaminophen 325 Mg Tab) 650 mg PO Q4H PRN PRN Reason: Pain MILD(1-3)/Fever >100.5/ADAIR Acyclovir (Acyclovir 200 Mg Cap) 400 mg PO BID [facility]; Protocol Last Admin: 09/23/21 09:58 Dose: 400 mg Albuterol (Albuterol 2.5 Mg/3 Ml Nebu) 2.5 mg IH Q4HRT PRN PRN Reason: Shortness Of Breath Apixaban (Apixaban 5 Mg Tab) 5 mg PO Q12HR [facility]; Protocol Last Admin: 09/23/21 09:58 Dose: 5 mg Budesonide (Budesonide 0.5 Mg/2 Ml Nebu) 0.5 mg IH Q12HRT [facility] Last Admin: 09/23/21 09:43 Dose: Not Given Famotidine (Famotidine 20 Mg Tab) 20 mg PO BID [facility] Last Admin: 09/23/21 09:58 Dose: 20 mg Fluticasone Propionate (Fluticasone Propionate Nasal [place] 16 Gm) 100 mcg NS QDAY PRN PRN Reason: Shortness Of Breath Gabapentin (Gabapentin 100 Mg Cap) 100 mg PO Q8HR [facility] Last Admin: 09/23/21 07:23 Dose: 100 mg Insulin Human Lispro (Insulin Lispro 100 Unit/Ml) 0 unit SUB-Q ACHS [facility]; Protocol Last Admin: 09/23/21 08:29 Dose: Not Given Latanoprost (Latanoprost 0.005% Ophth Soln 2.5 Ml) 1 drops OU QHS [facility] Last Admin: 09/22/21 23:38 Dose: 1 drops Metoprolol Tartrate (Metoprolol Tartrate 25 Mg Tab) 25 mg PO BID [facility] Last Admin: 09/23/21 09:58 Dose: 25 mg Morphine Sulfate (Morphine 2 Mg/1 Ml Inj) 2 mg IV Q4H PRN PRN Reason: Pain, Moderate (4-6) Naloxone HCl (Naloxone 0.4 Mg/1 Ml Inj) 0.1 mg IV Q2MIN PRN PRN Reason: Res Rate </= 8 or 02 SAT < 92% Ondansetron HCl (Ondansetron 4 Mg/2 Ml Inj) 4 mg IV Q8H PRN PRN Reason: Nausea And Vomiting Sodium Chloride (Sodium Chloride 0.9% 10 Ml Flush Syringe) 10 ml IV BID [facility] Last Admin: 09/23/21 09:59 Dose: 10 ml Sodium Chloride (Sodium Chloride 0.9% 10 Ml Flush Syringe) 10 ml IV PRN PRN PRN Reason: LINE FLUSH Review of Systems All systems: negative Cardiovascular: lightheadedness, no chest pain, no palpitations, no rapid/irregu lar heart beat, no edema, no syncope, no leg edema Physical Examination Vital Signs Temp Pulse Resp BP Pulse Ox 97.8 F 65 19 154/76 98 09/21/21 22:05 09/21/21 22:05 09/21/21 22:05 09/21/21 22:05 09/21/21 22:05 General appearance: no acute distress HEENT: Positive: Normocephaly Neck: Positive: trachea midline Cardiac: Positive: irregularly irregular, S1/S2. Negative: Audible Murmur Lungs: Positive: Normal Exam, clear to auscultation Neuro: Positive: Grossly Intact Abdomen: Positive: Unremarkable, Soft Female genitourinary: deferred Skin: Negative: Rash Extremities: Present: upper extr. pulses (2+). Absent: edema Results 09/23/21 03:58 09/23/21 03:58 CBC 09/23/21 Range/Units 03:58 WBC 4.6 (4.5-11.0) K/mm3 RBC 4.50 (3.65-5.03) M/mm3 Hgb 14.2 (10.1-14.3) gm/dl Hct 42.7 (30.3-42.9) % Plt Count 165 (140-440) K/mm3 Lymph # (Auto) 1.9 (1.2-5.4) K/mm3 [place] # (Auto) 0.4 (0.0-0.8) K/mm3 Eos # (Auto) 0.1 (0.0-0.4) K/mm3 Baso # (Auto) 0.0 (0.0-0.1) K/mm3 Comprehensive Metabolic Panel 09/23/21 Range/Units 03:58 Sodium 142 (137-145) mmol/L Potassium 3.8 (3.6-5.0) mmol/L Chloride 106.1 (98-107) mmol/L Carbon Dioxide 24 (22-30) mmol/L BUN 16 (7-17) mg/dL Creatinine 0.7 (0.6-1.2) mg/dL Glucose 95 (65-100) mg/dL Calcium 8.8 (8.4-10.2) mg/dL - Imaging and Cardiology Echo: report reviewed EKG: report reviewed EKG interpretations - Telemetry EKG Rhythm: Atrial Fibrillation - EKG Supraventricular dysrhythmia: atrial fibrillation Assessment and Plan Assessment Presyncope Paroxysmal atrial fibrillation (On Eliquis) H/o Hypertension Hyperlipidemia EKG 09/22/2021: Sinus rhythm, multiple PVCs, no acute ischemic change Echocardiogram 09/22/2021: LV is normal size. The left ventricular systolic function is normal. The LV ejection fraction is within the normal range. Mild concentric left ventricular hypertrophy. There is normal LV segmental wall motion. Left ventricular diastolic function is indeterminate. LVEF is 55 to 60%. Technically difficult, and limited study. Stress test: 10/2017: Negative Lexiscan EKG. Myocardial perfusion imaging is normal. Overall left ventricular systolic function was normal without regional wall motion abnormalities. LVEF was 58%. Recommendations/plan: -Echo as above -Check orthostatic vital signs -BP appears controlled on current regimen. -TSH within normal limits. -Continue Eliquis and metoprolol for oral anticoagulation and rate control with A. fib. Patient is currently AF 80s On telemetry -Overall, appears stable from cardiac standpoint for discharge home pending normal orthostatic VS. Patient seen in conjunction with Dr. Al who agrees with the assessment and management of this patient. - Patient Problems (1) Afib Current Visit: Yes Status: Acute (2) H/O: hypertension Current Visit: No Status: Acute (3) Anticoagulated Current Visit: Yes Status: Acute (4) Near syncope Current Visit: Yes Status: Acute
--- NOTE | 2021-09-23 11:59 | Discharge Summary ---
Providers - Providers Date of Admission: 09/22/21 08:11 Date of discharge: 09/23/21 Attending physician: MICHEL PARK MD 09/22/21 Consult to Case Management [CONS] Routine Services Needed at Discharge: Retail Leader Notified:: no 09/22/21 08:11 Consult to Physician [CONS] Routine Comment: Consulting Provider: CRUZ NEVAREZ Physician Instructions: Reason For Exam: near syncope Primary care physician: ALBERT CALDWELL Hospitalization Reason for admission: Orthostatic hypotension Condition: Good Pertinent studies: Reviewed. Procedures: None. Hospital course: Patient is a 81-year-old female past medical history of hypertension, hyperlipidemia, and possible paroxysmal atrial fibrillation that was recently started on Eliquis who presented to the ED yesterday after experiencing near syncopal episodes approximately 3 times yesterday. The patient described feeling "near faint" and that her "heart was skipping a beat". Due to the patient's concern with the frequency of these episodes, she presented to the ED. She denied any nausea, vomiting, diarrhea, fever, dysuria, recent travel, or noncompliance with her Eliquis. The patient follows up with [facility] cardiology. On presentation, the patient was found to be hemodynamically stable. Patient underwent CT head noncontrast, CT angio chest, and TTE that were found to be unremarkable. Patient was counseled about increasing her fluid intake, and she expressed understanding. Cardiology was consulted given her prior relationship with this group, and they recommended similar recommendations. Patient expressed understanding, and she is medically clear for discharge. Disposition: 01 HOME / SELF CARE / HOMELESS Final Discharge Diagnosis (Prints w/discharge instructions): Near syncope, paroxysmal atrial fibrillation, hypertension, hyperlipidemia, secondary coagulopathy, neuropathy being treated with gabapentin Time spent for discharge: 45 min Core Measure Documentation - Palliative Care Palliative Care/ Comfort Measures: Not Applicable - Core Measures Any of the following diagnoses?: none Exam - Constitutional Vitals: Temp Pulse Resp BP Pulse Ox 97.6 F 67 18 123/71 98 09/23/21 08:16 09/23/21 08:16 09/23/21 04:31 09/23/21 08:16 09/23/21 10:07 General appearance: Present: no acute distress, well-nourished - EENT Eyes: Present: PERRL, EOM intact ENT: hearing intact, clear oral mucosa, dentition normal - Neck Neck: Present: supple, normal ROM - Respiratory Respiratory effort: normal Respiratory: bilateral: CTA - Cardiovascular Rhythm: irregularly irregular Heart Sounds: Present: S1 & S2 - Extremities Extremities: no ischemia, pulses intact, pulses symmetrical, No edema, normal temperature, normal color, Full ROM Peripheral Pulses: within normal limits - Abdominal General gastrointestinal: Present: soft, non-tender, non-distended, normal bowel sounds Female genitourinary: Present: deferred - Rectal Rectal Exam: deferred - Integumentary Integumentary: Present: clear, warm, dry - Musculoskeletal Musculoskeletal: strength equal bilaterally - Psychiatric Psychiatric: appropriate mood/affect, intact judgment & insight, memory intact, cooperative - Neurologic Neurologic: CNII-XII intact, moves all extremities - Allied Health Allied health notes reviewed: nursing Plan Activity: advance as tolerated Diet: low salt, diabetic Additional Instructions: Patient is a 81-year-old female past medical history of hypertension, hyperlipidemia, and possible paroxysmal atrial fibrillation that was recently started on Eliquis who presented to the ED yesterday after experiencing near syncopal episodes approximately 3 times yesterday. The patient described feeling "near faint" and that her "heart was skipping a beat". Due to the patient's concern with the frequency of these episodes, she presented to the ED. She denied any nausea, vomiting, diarrhea, fever, dysuria, recent travel, or noncompliance with her Eliquis. The patient follows up with [facility] cardiology. On presentation, the patient was found to be hemodynamically stable. Patient underwent CT head noncontrast, CT angio chest, and TTE that were found to be unremarkable. Patient was counseled about increasing her fluid intake, and she expressed understanding. Cardiology was consulted given her prior relationship with this group, and they recommended similar recommendations. Patient expressed understanding, and she is medically clear for discharge. Care Plan Goals: Patient is medically clear for discharge. Assessment: Patient is a 81-year-old female past medical history of hypertension, hyperlipidemia, and possible paroxysmal atrial fibrillation that was recently started on Eliquis who presented to the ED yesterday after experiencing near syncopal episodes approximately 3 times yesterday. The patient described feeling "near faint" and that her "heart was skipping a beat". Due to the patient's concern with the frequency of these episodes, she presented to the ED. She denied any nausea, vomiting, diarrhea, fever, dysuria, recent travel, or noncompliance with her Eliquis. The patient follows up with [facility] cardiology. On presentation, the patient was found to be hemodynamically stable. Patient underwent CT head noncontrast, CT angio chest, and TTE that were found to be unremarkable. Patient was counseled about increasing her fluid intake, and she expressed understanding. Cardiology was consulted given her prior relationship with this group, and they recommended similar recommendations. Patient expressed understanding, and she is medically clear for discharge. Follow up with: ALBERT CALDWELL MD [Primary Care Provider] - 3-5 Days
[2021-09-23 12:52] VITALS: BP 133/89
--- NOTE | 2021-09-23 14:38 | Vascular Lab Report ---
DUPLEX DOPPLER ULTRASOUND CAROTID, BILATERAL INDICATION / CLINICAL INFORMATION: syncope. COMPARISON: None available. FINDINGS: RIGHT CAROTID: Minimal atherosclerotic plaque. - PLAQUE ESTIMATE (%): < 50% - CCA velocity: 73 cm/sec. - ICA peak systolic velocity: 69 cm/sec. - ICA/CCA PSV Ratio: Less than 2. Right Vertebral Artery: Antegrade flow. LEFT CAROTID: Minimal atherosclerotic plaque. - PLAQUE ESTIMATE (%): < 50% - CCA velocity: 86 cm/sec. - ICA peak systolic velocity: 60 cm/sec. - ICA/CCA PSV Ratio: Less than 2. Left Vertebral Artery: Antegrade flow. IMPRESSION: 1. Right Internal Carotid Artery: Less than 50% diameter stenosis. 2. Left Internal Carotid Artery: Less than 50% diameter stenosis. Velocity criteria are extrapolated from diameter data as defined by the Society of Radiologists in Ul trasound Consensus Conference, Radiology 2003; 229;340-346. NO STENOSIS (NORMAL) - Plaque = none; ICA PSV < 125 cm/sec; ICA/CCA PSV Ratio < 2.0 <50% STENOSIS - Plaque < 50%; ICA PSV < 125 cm/sec; ICA/CCA PSV Ratio < 2.0 50-69% STENOSIS - Plaque > 50%; ICA PSV = 125-230 cm/sec; ICA/CCA PSV Ratio = 2.0-4.0 >70% BUT <100% STENOSIS - Plaque > 50%; ICA PSV > 230 cm/sec; ICA/CCA PSV Ratio > 4.0 NEAR OCCLUSION - Plaque = visible lumen; ICA PSV = high/low/none; ICA/CCA PSV Ratio = variable TOTAL OCCLUSION - Plaque = no lumen; ICA PSV = none; ICA/CCA PSV Ratio = N/A Scribed by: Liat Goss RDMS, RVT, RMSKS Scribed: 09/23/2021 1:21 PM I have reviewed the images, agree with this report, and edited this report as needed. Some Signer Name: Ti Benitez MD Signed: 09/23/2021 2:33 PM Workstation Name: [id number]
== END 2021-09-23 14:11 | disposition home or self-care (01) ==
LOC: ED 22:02 → 4A 09-22 08:11 → INTOOBSV 09-22 08:11 → 4A 09-22 18:41
PROVIDERS: ADMIT Internal Medicine; ATTEND Student in an Organized Health Care Education/Training Program
DX: R55 Syncope and collapse (principal); I10 Essential (primary) hypertension; E78.5 Hyperlipidemia, unspecified; I48.0 Paroxysmal atrial fibrillation; D68.32 Hemorrhagic disorder due to extrinsic circulating anticoagulants; Z98.891 History of uterine scar from previous surgery; Z79.899 Other long term (current) drug therapy; Z98.890 Other specified postprocedural states; Z90.710 Acquired absence of both cervix and uterus; Z79.4 Long term (current) use of insulin
CPT/HCPCS: 36415; 70450; 71275; 80048; 80053; 82565; 82962; 83735; 84443; 84484; 85025; 85027; 85379; 85610; 85730; 93005; 93880; 99285; C8929; G0378; Q9967; 93306

== ENCOUNTER 2021-12-01 08:33 | Outpatient (CLI) | payer MEDICARE ==
--- NOTE | 2021-12-02 18:03 | Mammography Report ---
DIGITAL SCREENING MAMMOGRAM WITH CAD, 12/01/2021 CLINICAL INFORMATION / INDICATION: Routine screening mammography. TECHNIQUE: Digital bilateral 2D mammography was obtained in the craniocaudal and mediolateral oblique projections. This examination was interpreted with the benefit of Computer-Aided Detection analysis. COMPARISON: 10/26/2012 through 11/25/2020. FINDINGS: Breast Density: The breasts are almost entirely fatty. No dominant mass, suspicious calcifications, or architectural distortion in either breast. IMPRESSION: No mammographic evidence of malignancy. Follow up recommendation: Routine yearly screening mammogram. BI-RADS Category 1: NEGATIVE A "normal" or negative report should not discourage follow up or biopsy of a clinically significant f inding. A written summary of these findings will be mailed to the patient. The patient will be entered into a mammography reporting system which will generate a reminder letter for the patient's next appointmen t at the appropriate interval. The [employer] recommends yearly mammograms starting at age 40 and continuing as l dixie as a woman is in good health. Breast MRI is recommended for women with an approximate 20-25% or greater lifetime risk of breast cancer, including women with a strong family history of breast or ova agnes cancer or who have been treated for Hodgkin's disease. Signer Name: Alin Amezquita MD Signed: 12/02/2021 5:59 PM Workstation Name: [id number]
== END 2021-12-01 08:34 | disposition home or self-care (01) ==
LOC: MAMMO 08:33
PROVIDERS: ATTEND Internal Medicine
DX: Z12.31 Encounter for screening mammogram for malignant neoplasm of breast (principal)
CPT/HCPCS: 77067